=== PATIENT | male | born 1975 | race Caucasian/White ===

== ENCOUNTER 2016-08-18 13:39 | Emergency (ER) ==
[2016-08-18 13:44] VITALS: BP 120/77; TEMP 98.5; BMI 28.9
[2016-08-18] MEDS ORDERED: ZOFRAN 4 MG/2 ML IM STA (13:50)
[2016-08-18] MEDS ORDERED: MORPHINE 4 MG/ML SYRINGE IM STA (13:50)
[2016-08-18] MEDS ORDERED: TORADOL IM STA (13:51)
[2016-08-18] MEDS ORDERED: DECADRON 4 MG/ML SDV IM STA (13:51)
--- NOTE | 2016-08-18 14:33 | CT ---
EXAM: CT lumbar spine without contrast. HISTORY: Back pain COMPARISON: CT abdomen pelvis 01/23/2012 TECHNIQUE: Serial axial images of the spine were obtained from the lower thoracic spine through the pelvis without contrast. These were viewed in multiple planes. FINDINGS: Vertebral bodies demonstrate normal height, disc space and alignment. There is no acute compression fracture or subluxation. Disc spaces, vertebral body heights and alignment are maintain ed. The facets and posterior processes are normal. Transverse processes are normal. Limited view of the sacrum is normal. L1-L2: No central or neural foraminal narrowing. L2-L3: No central or neural foraminal narrowing. L3-L4: No central or neural foraminal narrowing. L4-L5: Small broad-based disc bulge with no central or neural foraminal narrowing identified. L5-S1: Small broad-based disc bulge with no central or neural foraminal narrowing identified. Limited views of the soft tissues are unremarkable. IMPRESSION: 1. No acute compression fracture or subluxation of the lumbar spine. 2. Small broad-based disc bulges in the lower lumbar spine with no central or neural foraminal narr owing.
--- NOTE | 2016-08-18 15:04 | ED.PDOC ---
General ED Provider: Dr. LAZARO TOBIN Chief Complaint: Back Pain Stated Complaint: low back pain Time Seen by Physician: 13:40 (lifting a logg) Mode of Arrival: Walk-In Information Source: Patient Exam Limitations: No limitations Primary Care Provider: MADELAINE LINDQUIST Nursing and Triage Documentation Reviewed and Agree: Yes Musculoskeletal Complaint Exam - Back Pain Complaint/Exam Onset/Duration: 1 hr ago Symptoms Are: Still present Timing: Constant Initial Severity: Moderate Current Severity: Moderate Character: Reports: Throbbing, Spasmodic, Stiffness Aggravating: Reports: Movements, Lifting, Bending, Walking Alleviating: Reports: Rest, Position Associated Signs and Symptoms: Denies: Swelling, Redness, Bruising, Fever, Weakness, Numbness, Tingling, Abdominal pain, Flank pain, Bladder incontinence, Bowel incontinence, Weight loss, Pain with weight bearing TAD Risk Factors: Reports: None Cauda Equina Risk Factors: Reports: None Epidural Abcess Risk Factors: Reports: None Related Surgical History: Reports: None Focal Tenderness: No Paraspinal Muscle Tenderness: No Paraspinal Muscle Spasm: No Scoliosis: No Lordosis: No Kyphosis: No SLR Test: Right Negative, Left Negative Hip Motion Testing Pain: Right Negative, Left Negative Focal Weakness: Present: None Focal Sensory Loss: Present: None Gait: Present: Normal Differential Diagnoses: Arthritis, Fracture, Strain, Sprain Review of Systems - Review Of Systems Constitutional: Reports: No symptoms Eyes: Reports: No symptoms Ears, Nose, Mouth, Throat: Reports: No symptoms Respiratory: Reports: No symptoms Cardiac: Reports: No symptoms GI: Reports: No symptoms : Reports: No symptoms Musculoskeletal: Reports: Back pain Skin: Reports: No symptoms Neurological: Reports: No symptoms Endocrine: Reports: No symptoms Hematologic/Lymphatic: Reports: No symptoms All Other Systems: Reviewed and Negative Past Medical History - Past Medical History Previously Healthy: Yes Endocrine: Reports: None Cardiovascular: Reports: None Respiratory: Reports: None Hematological: Reports: None Gastrointestinal: Reports: None Genitourinary: Reports: None Neuro/Psych: Reports: None Musculoskeletal: Reports: None Cancer: Reports: None - Surgical History General Surgical History: Reports: Other (splenic rupture) - Family History Family History: Reports: None - Social History Smoking Status: Never smoker Hx Substance Use: No Alcohol Screening: None - Immunizations Tetanus Shot up to Date: Yes Physical Exam - Physical Exam Appearance: Well-appearing, No pain distress, Well-nourished Eyes: AMEENA, EOMI, Conjunctiva clear ENT: Ears normal, Nose normal, Oropharynx normal Respiratory: Airway patent, Breath sounds clear, Breath sounds equal, Respirations nonlabored Cardiovascular: RRR, Pulses normal, No rub, No murmur GI/: Soft, Nontender, No masses, Bowel sounds normal, No Organomegaly Musculoskeletal: Normal strength, ROM intact, No edema, No calf tenderness Skin: Warm, Dry, Normal color Neurological: Sensation intact, Motor intact, Reflexes intact, Cranial nerves intact, Alert, Oriented Psychiatric: Affect appropriate, Mood appropriate Interpretation - Radiology Interpretation Radiology Interpretation By: Radiologist Radiology Results: Positive (disc buldge) Critical Care Note - Critical Care Note Total Time (mins): 0 Course - Course Orders, Labs, Meds: Orders Category Date Time Status Dexamethasone 4 mg/ml Inj [Decadron 4 mg/ml Sdv] MEDS 08/18/16 13:51 Stat 4 mg IM ONCE STA Ketorolac Tromethamine [Toradol] MEDS 08/18/16 13:51 Stat 60 mg IM ONCE STA Morphine Sulfate [Morphine 4 mg/ml Syringe] MEDS 08/18/16 13:50 Stat 4 mg IM ONCE STA Ondansetron HCl/Pf [Zofran 4 mg/2 ml] MEDS 08/18/16 13:50 Stat 4 mg IM ONCE STA CT LUMBAR SPINE W/O CONTRAST Stat RADS 08/18/16 13:50 Ordered Medications Discontinued Medications Generic Name Dose Route Start Last Admin Trade Name Freq PRN Reason Stop Dose Admin Dexamethasone Sodium Phosphate 4 mg 08/18/16 13:51 08/18/16 14:15 Decadron 4 Mg/Ml Sdv IM 08/18/16 13:52 4 mg ONCE STA Administration Ketorolac Tromethamine 60 mg 08/18/16 13:51 08/18/16 14:15 Toradol IM 08/18/16 13:52 60 mg ONCE STA Administration Morphine Sulfate 4 mg 08/18/16 13:50 08/18/16 14:16 Morphine 4 Mg/Ml Syringe IM 08/18/16 13:51 4 mg ONCE STA Administration Ondansetron HCl 4 mg 08/18/16 13:50 08/18/16 14:16 Zofran 4 Mg/2 Ml IM 08/18/16 13:51 4 mg ONCE STA Administration Vital Signs: Temp Pulse Resp BP Pulse Ox 08/18/16 13:40 98.5 F 100 H 20 120/77 98 Departure - Departure Time of Disposition: 15:04 Disposition: HOME SELF-CARE Discharge Problem: Backache Sprain, lumbar Qualifiers: Encounter type: initial encounter Qualifier Code: (S33.5XXA) Sprain of ligaments of lumbar spine, initial encounter Instructions: Back Pain (ED), Acute Low Back Pain (ED), Low Back Strain (ED) Condition: Good Pt referred to PMD for follow-up: No Additional Instructions: Please call your Family Physician as soon as possible to schedule a follow-up appointment. Prescriptions: Hydrocodone/Acetaminophen [[place] 5-325 Tablet] 1 each PO Q6HR PRN #10 tablet PRN Reason: PAIN Allergies/Adverse Reactions: Allergies No Known Allergies Allergy (Verified 12/24/15 19:45) Home Medications: Ambulatory Orders Dextroamphetamine/Amphetamine [Adderall 10 mg Tablet] 10 mg PO BID 02/13/14 Hydrocodone/Acetaminophen [[place] 5-325 Tablet] 1 each PO Q6HR PRN #10 tablet 12/28
== END 2016-08-18 15:12 | disposition home or self-care (01) ==
LOC: ED 13:39
DX: S33.5XXA Sprain of ligaments of lumbar spine, initial encounter (principal); X50.0XXA Overexertion from strenuous movement or load, initial encounter
CPT/HCPCS: 96372; 99283

== ENCOUNTER 2017-08-03 07:03 | Emergency (ER) ==
[2017-08-03 07:04] VITALS: BMI 28.9
[2017-08-03 07:11] VITALS: BP 130/90; TEMP 97
--- NOTE | 2017-08-03 07:26 | ED.PDOC ---
General ED Provider: Dr. TARYN MAURICE Chief Complaint: Knee Pain/Injury Stated Complaint: Lt Knee pain.Onset after felt popping sensation when walking across yard. Progressive worsening especially after taking hot shower last evening. Painful with ambulaltion. Denies previous injury. Self employed- [employer]. Time Seen by Physician: 07:20 Mode of Arrival: Walk-In Information Source: Patient Exam Limitations: No limitations Referred to ED by: Other (Self) Nursing and Triage Documentation Reviewed and Agree: Yes Reviewed sepsis parameters & appropriate labs ordered?: No System Inflammatory Response Syndrome: Not Applicable Sepsis Protocol: For patient's 13 years and over: Temp is 96.8 and below OR 101 and greater Pulse >90 BPM Resp >20/minute Acutely Altered Mental Status Are patient's symptoms suggestive of a new infection, such as: -Pneumonia -Skin, Soft Tissue -Endocarditis -UTI -Bone, Joint Infection -Implantable Device -Acute Abdominal Infection -Wound Infection -Meningitis -Blood Stream Catheter Infection -Unknown System Inflammatory Response Syndrome: Not Applicable Musculoskeletal Complaint Exam - Knee Pain Complaint/Exam Mechanism of Injury: Reports: No known trauma Onset/Duration: 08/02/2017 Symptoms Are: Still present Onset of Pain: Reports: Immediate Initial Severity: Moderate Current Severity: Moderate Location: Reports: Diffuse Character: Reports: Aching Alleviating: Reports: Rest Aggravating: Reports: Movement Associated Signs and Symptoms: Reports: Swelling Able to Bear Weight: Yes Related History: Reports: Similar episode Septic Arthritis Risk Factors: Reports: None Gout Risk Factors: Reports: None Knee Findings: Present: Swelling, Tenderness Tenderness: Present: Tibial Tuberosity Jean Pierre Test Positive: No Marycarmen Test Positive: Yes Limited Range of Motion: Present: Active, Passive Differential Diagnoses: Internal Derangement, Strain Review of Systems - Review Of Systems Constitutional: Reports: No symptoms Eyes: Reports: No symptoms Ears, Nose, Mouth, Throat: Reports: No symptoms Respiratory: Reports: No symptoms Cardiac: Reports: No symptoms GI: Reports: No symptoms : Reports: No symptoms Musculoskeletal: Reports: Joint pain Skin: Reports: No symptoms Neurological: Reports: No symptoms Endocrine: Reports: No symptoms Hematologic/Lymphatic: Reports: No symptoms All Other Systems: Reviewed and Negative Past Medical History - Past Medical History Previously Healthy: Yes Endocrine: Reports: None Cardiovascular: Reports: None Respiratory: Reports: None Hematological: Reports: None Gastrointestinal: Reports: None Genitourinary: Reports: None Neuro/Psych: Reports: None Musculoskeletal: Reports: None Cancer: Reports: None - Surgical History General Surgical History: Reports: Other (splenic rupture) - Family History Family History: Reports: None - Social History Smoking Status: Former smoker Hx Substance Use: No Alcohol Screening: None - Immunizations Tetanus Shot up to Date: Yes Physical Exam - Physical Exam Appearance: Well-appearing Ill-appearing: None Pain Distress: Mild Eyes: AMEENA, EOMI, Conjunctiva clear ENT: Ears normal, Nose normal, Oropharynx normal Neck: Supple Respiratory: Airway patent, Breath sounds clear, Breath sounds equal Cardiovascular: RRR, Pulses normal, No rub GI/: Soft, Nontender Musculoskeletal: Normal strength (Tenderness over dorsal medial aspect lt knee; + Mc [place]rays; Neg Drawer testing) Skin: Warm Neurological: Sensation intact, Motor intact, Alert, Oriented, Alert to pain Psychiatric: Affect appropriate, Mood appropriate Interpretation - Radiology Interpretation Radiology Interpretation By: Radiologist Radiology Results: Negative Exam Interpreted: Other (Knee) Re-Evaluation - Re-Evaluation Time of Re-Evaluation: 08:50 Status: Unchanged Vital Signs Stable: Yes Pain Level: 5/10 Appearance: NAD Skin: Warm and Dry Neuro: Alert and Oriented X3 CV: RRR Additional Comments: Capable of full lt knee extension at present Critical Care Note - Critical Care Note Total Time (mins): 0 Course - Course Orders, Labs, Meds: Orders Category Date Time Status Ketorolac Tromethamine [Toradol] MEDS 08/03/17 07:50 Discontinued 10 mg PO ONCE STA KNEE, LEFT 4 VIEWS Stat RADS 08/03/17 07:44 Completed Medications Discontinued Medications Generic Name Dose Route Start Last Admin Trade Name Yumi PRN Reason Stop Dose Admin Ketorolac Tromethamine 10 mg 08/03/17 07:50 08/03/17 07:55 Toradol PO 08/03/17 07:51 10 mg ONCE STA Administration Vital Signs: Temp Pulse Resp BP Pulse Ox 08/03/17 07:04 97 F L 97 H 20 130/90 98 Departure - Departure Time of Disposition: 09:10 Disposition: HOME SELF-CARE Discharge Problem: Strain of left knee Instructions: Knee Pain (ED), Knee Immobilizer (ED) Condition: Good Pt referred to PMD for follow-up: Yes ([facility]) IPMP verified?: No Additional Instructions: May take Toradol 10 mg 1 tablet every 6 hours for contorl of pain -DO NOT EXCEEd 20 tablets May also take Tylenol ES 2 every 6 hrs for additional pain relief ICE pack therapy to lt knee for 20-30 minutes 3 times daily, wear knee immobilizer and use crutches for assisted ambulation , ELEVATE Follow up PCP for evaluation and for referral for MRI Allergies/Adverse Reactions: Allergies No Known Allergies Allergy (Verified 08/03/17 07:10) Home Medications: Ambulatory Orders Dextroamphetamine/Amphetamine [Adderall 20 mg Tablet] 20 mg PO DAILY 08/03/17
[2017-08-03] MEDS ORDERED: TORADOL PO STA (07:50)
--- NOTE | 2017-08-03 08:27 | DI ---
Exam: Left knee four view. HISTORY: Pain. Findings: Four images of the left knee are submitted. These demonstrate no acute fracture or disloc ation. There is no osseous erosion or radiodense foreign body. 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 There is no suprapatellar effusion. No focal soft tissue swelling is seen. Impressions: No acute fracture or dislocation identified in the left knee. 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
== END 2017-08-03 09:45 | disposition home or self-care (01) ==
LOC: ED 07:03
DX: S86.812A Strain of other muscle(s) and tendon(s) at lower leg level, left leg, initial encounter (principal); X50.1XXA Overexertion from prolonged static or awkward postures, initial encounter
CPT/HCPCS: 99283